=== PATIENT | male | born 1980 | race Two or more races ===

== ENCOUNTER 2022-09-16 11:14 | Emergency (ER) | payer SELFPAY ==
[~2022-09-16] VITALS: Ht 167.6 cm; Wt 130.0 kg
[2022-09-16] MEDS ORDERED: SODIUM CHLORIDE 0.9% 1,000 ML IV ONE (12:15)
[2022-09-16 12:21] LABS: Urine Bacteria NONE SEEN /hpf (None Seen); Urine Blood Negative /uL (Negative); Urine Mucus FEW (None Seen); Urine Specific Gravity 1.023 (1.001-1.035); Urine WBC 1 /hpf (0 - 3)
[2022-09-16 13:49] LABS: Potassium 3.9 mmol/L (3.5-5.1)
[2022-09-16 13:50] LABS: BUN/Creatinine Ratio 12.5
[2022-09-16 13:51] LABS: Bilirubin, Total 0.9 mg/dL (0.2-1.0); Calcium 9.1 mg/dL (8.5-10.1)
[2022-09-16 13:52] LABS: Albumin 3.6 g/dL (3.4-5.0); Magnesium 2.3 mg/dL (1.6-2.6); Total Protein 7.9 g/dL (6.4-8.2)
[2022-09-16 14:12] LABS: Basophils # (auto) 0.1 10 ^3/uL (0-0.2); Basophils % (auto) 0.7 % (0.0-2.0); Eosinophils # (auto) 0.1 10 ^3/uL (0-0.8); Eosinophils % (auto) 0.5 % (0.0-7.0); Hemoglobin 15.1 g/dL (13.5-17.5); Lymphocytes # (auto) 2.3 10 ^3/uL (0.4-5.4); Lymphocytes % (auto) 15.8 % (10.0-50.0); Mean Corpuscular Hemoglobin 27.4 pg (28.0-32.0); Mean Corpuscular Hgb Conc. 32.7 g/dL (32.0-36.0); Mean Corpuscular Volume 83.6 fL (80.0-100.0); Monocytes # (auto) 1.1 10 ^3/uL (0-1.3); Neutrophils # (auto) 10.7 10 ^3/uL (1.6-8.6); Nucleated Red Blood Cells % 0.1 %; Red Cell Distribution Width 13.6 % (11.8-14.3); White Blood Cell 14.3 10^3/uL (4.4-10.8)
[2022-09-16] MEDS ORDERED: METR500T PO (15:24)
[2022-09-16] MEDS ORDERED: CIPR-173 PO (15:24)
[2022-09-16] MEDS ORDERED: SACC1CAP3 PO (15:24)
[2022-09-16] MEDS ORDERED: cefTRIAXone 1GM/50ML D5W 50 ML IV ONE (15:30)
[2022-09-16] MEDS ORDERED: metroNIDAZOLE 500MG/100ML 100 ML IV ONE (15:30)
[2022-09-16 16:27] VITALS: BP 161/97
== END 2022-09-16 16:29 | disposition home or self-care (01) ==
LOC: ER 11:21
DX: R10.32 Left lower quadrant pain (principal); K57.32 Diverticulitis of large intestine without perforation or abscess without bleeding; K76.0 Fatty (change of) liver, not elsewhere classified; Z90.49 Acquired absence of other specified parts of digestive tract; Z79.899 Other long term (current) drug therapy; Z79.2 Long term (current) use of antibiotics
CPT/HCPCS: 36415; 71046; 74176; 80053; 81001; 83690; 83735; 85025; 96361; 96365; 99285; J0696; J3490; J7030